=== PATIENT | male | born 1935 | race Two or more races ===

== ENCOUNTER 2017-11-01 15:47 | Emergency (ER) | payer OTHER ==
[~2017-11-01] VITALS: Ht 170.2 cm; Wt 83.9 kg
[~2017-11-01 15:47] MED LIST: AMOX1TAB5 PO; BACTROBAN OINT22 GM TP; CLARITIN10 M1 PO; METFORMIN HCL500 MG; SYNTHROID50 MCG; TUSSI PRES-B L120 M1 PO; VAITORIN; ZITHROMAX TRI-500 MG PO
== END 2017-11-01 21:42 | disposition home or self-care (01) ==
LOC: ER 15:47
DX: J06.9 Acute upper respiratory infection, unspecified (principal); J11.1 Influenza due to unidentified influenza virus with other respiratory manifestations

== ENCOUNTER → 2017-12-24 | Emergency (ER) | payer OTHER | END | disposition left against medical advice (07) | LOC: ER 15:35 | DX: Z53.20 Procedure and treatment not carried out because of patient's decision for unspecified reasons (principal) ==

== ENCOUNTER 2018-08-27 15:50 | Emergency (ER) | payer OTHER ==
[~2018-08-27] VITALS: Ht 172.7 cm; Wt 81.6 kg
== END 2018-08-27 19:50 | disposition home or self-care (01) ==
LOC: ER 15:50
DX: M12.572 Traumatic arthropathy, left ankle and foot (principal); L03.116 Cellulitis of left lower limb

== ENCOUNTER 2019-01-07 10:52 | Outpatient (CLI) | payer OTHER | END 2019-01-07 17:00 | disposition home or self-care (01) | LOC: SONOGRAMA 10:52 | DX: R10.30 Lower abdominal pain, unspecified (principal) ==

== ENCOUNTER 2019-02-01 14:16 | Emergency (ER) | payer OTHER ==
[~2019-02-01] VITALS: Ht 172.7 cm; Wt 81.6 kg
== END 2019-02-01 17:36 | disposition home or self-care (01) ==
LOC: ER 14:16
DX: L08.89 Other specified local infections of the skin and subcutaneous tissue (principal); S80.212S Abrasion, left knee, sequela; W18.09XS Striking against other object with subsequent fall, sequela

== ENCOUNTER → 2019-10-20 | Outpatient (CLI) | payer OTHER | END | disposition home or self-care (01) | LOC: RAD 12:47 | DX: R05 Cough (principal) ==

== ENCOUNTER 2020-05-24 10:40 | Emergency (ER) | payer OTHER ==
[~2020-05-24] VITALS: Ht 172.7 cm; Wt 85.7 kg
[2020-05-24] MEDS ORDERED: CLINDAMYCIN HC300 MG PO (14:29)
[2020-05-24] MEDS ORDERED: INTESTINEX680 M2 PO (14:29)
== END 2020-05-24 14:45 | disposition home or self-care (01) ==
LOC: ER 10:40
DX: L02.415 Cutaneous abscess of right lower limb (principal)

== ENCOUNTER 2021-07-21 08:00 | Outpatient (CLI) | payer OTHER ==
[~2021-07-21 08:00] MED LIST changes: +CLINDAMYCIN HC300 MG PO; +INTESTINEX680 M2 PO
== END 2021-07-21 08:30 | disposition home or self-care (01) ==
LOC: PPH VACUNA 08:00
PROVIDERS: ATTEND Emergency Medicine Pediatric Emergency Medicine
DX: Z23 Encounter for immunization (principal)

== ENCOUNTER 2021-07-22 13:33 | Outpatient (CLI) | payer OTHER | END 2021-07-22 14:17 | disposition home or self-care (01) | LOC: TOM 13:33 | DX: N20.0 Calculus of kidney (principal); K80.80 Other cholelithiasis without obstruction ==

== ENCOUNTER 2021-09-25 21:57 | Emergency (ER) | payer OTHER ==
[~2021-09-25] VITALS: Ht 170.2 cm; Wt 83.9 kg
== END 2021-09-26 10:57 | disposition home or self-care (01) ==
LOC: ER 21:57
DX: K59.00 Constipation, unspecified (principal); R33.8 Other retention of urine

== ENCOUNTER 2021-09-28 21:31 | Inpatient (IN) | payer OTHER ==
[~2021-09-28] VITALS: Ht 172.7 cm; Wt 85.3 kg
--- NOTE | 2021-09-28 21:52 | NUR ---
SE RECIBE PACIENTE MASCULINO DE 86 ANOS DE EDAD QUE LLEGA JULIO DE EMEGRENCIAS POR DEBILIDAD Y DOLOR EN AMBOS BRAZOS Y PIERNAS. AL MOMENTO SE MANTIENE EN SILLA DE ANDREW POR QUE LE DUELEN LAS PIERNAS. PACIENTE EN EPSERA DE EVALUACION MEDICA.
--- NOTE | 2021-09-28 22:02 | NUR ---
SE REALIZA ADMINISTRACION DE 2 TABLETAS DE ACETAMINOPHEN 500MG PO PARA MANEJAR FIEBRE.
--- NOTE | 2021-09-28 22:24 | NUR ---
SE REALIZA EKG A PACIENTE Y EL MISMO PRESENTA ALTERACION, SE UBICA EN SISSY 13 Y SE CONECTA A MONITOR CARDIACO OXIMETRIA DE PULSO Y SE ENTREGA KELLY A RN STRAUSS PARA CONTINUDIAD. SE LE REALIZO ADMINISTRACION DE MEDICAMENTOS A PARA LA FIEBRE.
--- NOTE | 2021-09-28 22:49 | NUR ---
EVALUA PTE. SE UBICA A PTE EN CAMA CON BARANDAS ELEVADAS POR SEGURIDAD Y EN COMPANIA DE FAMILIAR. SE EDUCA A PTE Y FAMILIAR SOBRE TX MEDICO. PTE Y FAMILIAR REFIEREN COMPRENDER. SE REALIZAN MUESTRAS DE LABORATORIO BAJO MEDIDAS ASEPTICAS Y SE ENVIAN AL LABORATORIO. SE ADMINISTRA ADENOCARD 6MG IV PUSH PRINCE ORDEN MEDICA DEL . SE ADMINISTRA IV'S PRINCE ORDEN MEDICA. SE REALIZA COVID Y SE ENVIA AL LABORATORIO. SE MARIANO A PTE EN CAMA CON BARANDAS ELEVADAS SEGURIDAD EN COMPANIA DE FAMILIAR. PTE MANEJADO POR Y .
--- NOTE | 2021-09-29 07:09 | NUR ---
SE RECIBE PACIENTE MASCULINO DE 86 ANOS DE EDAD DESPIERTO Y ALERTA EN SISSY CON BARANDAS ELEVADAS EN POSICION SEMI SENTADO CONECTADO A MONITOR CARDIACO Y SATUROMETRIA TORIBIO. AREA DE VENOPUNCION PATENTE EN BRAZO DERECHO BAJANDO UN 0.9NSS A 80ML POR HORA GENO DE EDEMAS, ENROJECIMIENTO Y DOLOR AL TACTO. PACIENTE AL MOMENTO CON RITMO CARDIACO ESTABLE. SE MANTIENE PACIENTE EN OBSERVACION POR CAMBIOS SIGNIFICATIVOS. PACIENTE PENDIENTE A EVALUACION DE MEDICINA INTERNA
[2021-09-30] MEDS ORDERED: OMEPRAZOLE20 MG (08:38)
[2021-09-30] MEDS ORDERED: DICLOFENAC SOD100 GM (08:38)
[2021-09-30] MEDS ORDERED: ST. JOSEPH ASPI81 M2 (08:39)
[2021-09-30] MEDS ORDERED: SIMVASTATIN40 MG (08:39)
[2021-09-30] MEDS ORDERED: ACEBUTOLOL HCL200 MG (08:39)
[2021-09-30] MEDS ORDERED: METFORMIN HCL500 M4 (08:39)
[2021-09-30] MEDS ORDERED: PRESERVISION A1 EAC1 (08:39)
[2021-09-30] MEDS ORDERED: DORZOLAMIDE-TIM10 ML (08:39)
[2021-09-30] MEDS ORDERED: ALKA-SELTZER O1 EACH (08:40)
[2021-09-30] MEDS ORDERED: DULCOLAX5 MG (08:40)
[2021-10-01] MEDS ORDERED: CIPRO500 MG PO (12:54)
[2021-10-01] MEDS ORDERED: INTESTINEX680 M1 PO (12:56)
[2021-10-01] MEDS ORDERED: METRONIDAZOLE500 MG PO (12:56)
== END 2021-10-01 15:04 | disposition home or self-care (01) | DRG 309 ==
LOC: ER 21:31 → MEDI 09-29 10:09
PROVIDERS: ADMIT Internal Medicine; ATTEND Internal Medicine
PROC: B24BZZZ Ultrasonography of Heart with Aorta (ICD-10-PCS; principal; 2021-09-29)
PROC: BW21ZZZ Computerized Tomography (CT Scan) of Abdomen and Pelvis (ICD-10-PCS; 2021-09-29)
PROC: BW28ZZZ Computerized Tomography (CT Scan) of Head (ICD-10-PCS; 2021-09-29)
PROC: 4A12X4Z Monitoring of Cardiac Electrical Activity, External Approach (ICD-10-PCS; 2021-09-29)
DX: I47.1 Supraventricular tachycardia (principal); N39.0 Urinary tract infection, site not specified; K59.09 Other constipation; E03.8 Other specified hypothyroidism; E11.9 Type 2 diabetes mellitus without complications; D72.828 Other elevated white blood cell count; Z79.4 Long term (current) use of insulin; Z20.822 Contact with and (suspected) exposure to COVID-19; E86.0 Dehydration; E87.8 Other disorders of electrolyte and fluid balance, not elsewhere classified

== ENCOUNTER 2022-06-19 14:30 | Outpatient (CLI) | payer OTHER ==
[~2022-06-19 14:30] MED LIST changes: +ACEBUTOLOL HCL200 MG; +ALKA-SELTZER O1 EACH; +CIPRO500 MG PO; +DICLOFENAC SOD100 GM; +DORZOLAMIDE-TIM10 ML; +DULCOLAX5 MG; +INTESTINEX680 M1 PO; +METFORMIN HCL500 M4; +METRONIDAZOLE500 MG PO; +OMEPRAZOLE20 MG; +PRESERVISION A1 EAC1; +SIMVASTATIN40 MG; +ST. JOSEPH ASPI81 M2
== END 2022-06-19 15:00 | disposition home or self-care (01) ==
LOC: PPH VACUNA 14:30
PROVIDERS: ATTEND Emergency Medicine Pediatric Emergency Medicine
DX: Z23 Encounter for immunization (principal)